=== PATIENT | female | born 1955 | race Caucasian/White ===

== ENCOUNTER → 2017-07-26 | Outpatient (CLI) | payer OTHER ==
--- NOTE | 2017-07-26 13:12 | RAD ---
DATE: 07/26/2017 EXAM: DIGITAL SCREEN BILAT W/CAD HISTORY: Routine screening COMPARISON: 07/24/2016 This study was interpreted with the benefit of Computerized Aided Detection (CAD). The breast parenchyma shows scattered fibroglandular densities. Breast parenchyma level B. FINDINGS: No new or enlarging breast densities are seen. A marker from a previous breast biopsy is present posteromedially in the left breast. No suspicious microcalcifications are evident. IMPRESSION: Stable mammograms without evidence of malignancy. BI-RADS CATEGORY: 2 BENIGN FINDING(S) RECOMMENDED FOLLOW-UP: 12M 12 MONTH FOLLOW-UP PQRS compliance statement: Patient information was entered into a reminder system with a target due date for the next mammogram. Mammography is a sensitive method for finding small breast cancers, but it does not detect them all and is not a substitute for careful clinical examination. A negative mammogram does not negate a clinically suspicious finding and should not result in delay in biopsying a clinically suspicious abnormality. "Our facility is accredited by the [employer] Mammography Program."
== END | disposition home or self-care (01) ==
LOC: MAMMO 09:53
PROVIDERS: ATTEND Physician Assistant Medical
DX: Z12.31 Encounter for screening mammogram for malignant neoplasm of breast (principal)
CPT/HCPCS: 77067

== ENCOUNTER 2017-09-04 13:30 | Emergency (ER) | payer OTHER ==
[~2017-09-04] VITALS: Ht 152.4 cm; Wt 91.6 kg
--- NOTE | 2017-09-04 14:10 | RAD ---
CT CODE STROKE HEAD WO History: Severe headache, right arm numbness, code stroke Comparison: None. Technique: Noncontrast CT imaging was performed of the head. Exposure: One or more of the following individualized dose reduction techniques were utilized for this examination: 1. Automated exposure control 2. Adjustment of the mA and/or kV according to patient size 3. Use of iterative reconstruction technique. Findings: There has been left parietal temporal craniotomy. No acute extra-axial or parenchymal hemorrhage is identified. There is no significant intra-axial mass effect, midline shift, or extra-axial fluid collection. The krueger-white differentiation of the major vascular territories is preserved. The ventricles, sulci, and cisterns are within normal limits in size and configuration. The mastoid air cells and the visualized paranasal sinuses are aerated. No acute calvarial abnormality is identified. Impression: 1. No acute intracranial abnormality is identified. If there is concern for evolving or acute ischemia, followup CT or MRI could be beneficial. FOR INTERNAL CODING PURPOSES Critical result: Findings discussed with Mariann RAMEY in the Emergency Department at 09/04/2017 2:03 PM. RESULT CODE: (C) Electronically signed by: Johnny Wolff MD (09/04/2017 2:07 PM) [id number]
[2017-09-04] MEDS ORDERED: KETOROLAC 30 MG/ML VIAL. IV ONE (14:15)
[2017-09-04] MEDS ORDERED: METOPROLOL TARTRATE 5 MG/5 ML VIAL. IV ONE (14:30)
[2017-09-04 14:37] VITALS: BP 157/85
--- NOTE | 2017-09-04 15:08 | PHYS DOC ---
Past History Past Medical History: Fibromyalgia, TIA Past Surgical History: , Lumbar Laminectomy Alcohol Use: None Drug Use: None Adult General Chief Complaint Chief Complaint: SEIZURE HPI HPI Patient is a 62 year old F who presents after being seen in the clinic for pacemaker check. During her visit, after her pacemaker was found to be normal, she did have a tonic-clonic seizure. She does have a history of seizures and has had frequent seizures over the past several weeks. She did recently increase her trazodone from 50 mg to 150. She also follows with Dr. Robles and neurology. Currently she describes a mild headache with no other abnormal symptoms. She has no other associated symptoms at this time. She has no other exacerbating or alleviating factors. Review of Systems Review of Systems Constitutional: Denies fever or chills [] Eyes: Denies change in visual acuity, redness, or eye pain [] HENT: Denies nasal congestion or sore throat [] Respiratory: Denies cough or shortness of breath [] Cardiovascular: No additional information not addressed in HPI [] GI: Denies abdominal pain, nausea, vomiting, bloody stools or diarrhea [] : Denies dysuria or hematuria [] Musculoskeletal: Denies back pain or joint pain [] Integument: Denies rash or skin lesions [] Neurologic: Denies focal weakness or sensory changes [] Endocrine: Denies polyuria or polydipsia [] All other systems were reviewed and found to be within normal limits, except as documented in this note. Family History Family History No Pertinent family medical history was reported Current Medications Current Medications Current Medications Medications (Trade) Dose Ordered Sig/[facility] Start Time Stop Time Status Last Admin Dose Admin Ketorolac Tromethamine (Toradol) 30 mg 1X ONCE 09/04/17 14:15 09/04/17 14:21 DC 09/04/17 14:17 30 MG Metoprolol Tartrate (Lopressor Vial) 5 mg 1X ONCE 09/04/17 14:30 09/04/17 14:31 DC Allergies Allergies Allergies Coded Allergies Type Severity Reaction Last Updated Verified erythromycin base Allergy Intermediate 09/04/17 Yes Physical Exam Physical Exam Constitutional: Well developed, well nourished, no acute distress, non-toxic appearance. [] HENT: Normocephalic, atraumatic, Eyes: EOMI, conjunctiva normal, no discharge. [] Neck: Normal range of motion, no tenderness, supple, no stridor. [] Cardiovascular:Heart rate regular rhythm, paced Lungs & Thorax: Bilateral breath sounds clear to auscultation [] Abdomen: Bowel sounds normal, soft, no tenderness, no masses, no pulsatile masses. [] Skin: Warm, dry, no erythema, no rash. [] Back: No tenderness, no CVA tenderness. [] Extremities: No tenderness, no cyanosis, no clubbing, ROM intact, no edema. [] Neurologic: Alert and oriented X 3, normal motor function, normal sensory function, no focal deficits noted. [] Psychologic: Affect normal, judgement normal, mood normal. [] Current Patient Data Vital Signs Vital Signs Date Time Temp Pulse Resp B/P (MAP) Pulse Ox O2 Delivery O2 Flow Rate FiO2 09/04/17 14:37 89 18 157/85 (109) 98 Room Air 09/04/17 13:51 98.0 EKG EKG [] Radiology/Procedures Radiology/Procedures CT head w/o contrast Impressions: No acute disease Course & Med Decision Making Course & Med Decision Making Pertinent Labs and Imaging studies reviewed. (See chart for details) [] Dragon Disclaimer Dragon Disclaimer This electronic medical record was generated, in whole or in part, using a voice recognition dictation system. Departure Departure: Impression: Primary Impression: Seizure Disposition: 01 HOME, SELF-CARE Condition: STABLE Referrals: MITCH BARRERA (PCP) Patient Instructions: Seizure Disorder, Child, Generalized Tonic-Clonic Additional Instructions: Gillian was seen in the emergency department for seizure. No emergency medical condition was found on history or physical exam. Dr. Robles, her neurologist, was contacted by phone. He advised that she increase her Trileptal to 600 mg in the morning and 300 mg in the evening. He also recommended that she increase her Vimpat to 150 mg twice daily. She was advised follow-up with Dr. Robles in the next week. MANDEEP ROSADO MD Sep 04, 2017 15:08
== END 2017-09-04 15:20 | disposition home or self-care (01) ==
LOC: ER 13:30
DX: R56.9 Unspecified convulsions (principal); R51 Headache; M79.7 Fibromyalgia; Z86.73 Personal history of transient ischemic attack (TIA), and cerebral infarction without residual deficits; Z95.0 Presence of cardiac pacemaker; Z88.1 Allergy status to other antibiotic agents
CPT/HCPCS: 70450; 96374; 99284; J1885

== ENCOUNTER → 2017-09-20 | Outpatient (CLI) | payer OTHER ==
[2017-09-04 14:37] VITALS: BP 157/85
[~2017-09-20] MED LIST: IOHEXOL 300 MG/ML 75 ML VIAL. IV ONE
--- NOTE | 2017-09-20 17:47 | RAD ---
CTA head History: CVA, syncope, seizure, memory change Technique: After bolus of intravenous contrast, volumetric CT data acquisition was acquired of the head. Multiplanar reconstruction images to include MIP and 3-D reconstruction images are submitted. Exposure: One or more of the following individualized dose reduction techniques were utilized for this examination: 1. Automated exposure control 2. Adjustment of the mA and/or kV according to patient size 3. Use of iterative reconstruction technique. Contrast: 75 cc Isovue-370 Comparison: Noncontrast head September 04, 2017 Any determination of stenosis is based on NASCET criteria. Findings: There is some motion. Both vertebral arteries constitute the basilar artery. There is visualization segments of the bilateral PICAs. AICAs are poorly visualized on this exam. Right superior cerebellar artery is poorly visualized. There is patent right posterior communicating artery, aplastic right P1 segment. There is no significant left posterior communicating artery. There is diffuse significant narrowing of the visualized left cervical internal carotid artery as well as of the left petrous internal carotid artery as well as cavernous segment with apparent occlusion at level of the anterior cavernous left internal carotid artery. There is also segmental occlusion of the more distal left petrous internal carotid artery. There is probable small patent anterior communicating artery. There is some reconstitution of segments of the small caliber left middle cerebral artery. There is also some variable reconstitution of small caliber left anterior cerebral artery. There again has been left parietal temporal craniotomy. There is moderate narrowing of the proximal cervical right internal carotid artery by calcified plaque. Impression: 1. There is diffuse narrowing of the left cervical internal carotid artery as well as left petrous and cavernous internal carotid arteries with occlusion beyond the anterior left cavernous internal carotid artery, also segmental occlusion at level of the distal left petrous internal carotid artery. There is some reconstitution of smaller caliber left middle cerebral artery branches, segmental reconstitution of smaller caliber left anterior cerebral artery. 2. There is -type right posterior cerebral artery. FOR INTERNAL CODING PURPOSES Critical result: Findings discussed with MITCH BARRERA at 09/20/2017 5:43 PM. RESULT CODE: (C) Electronically signed by: Johnny Wolff MD (09/20/2017 5:44 PM) [email or web address]
== END | disposition home or self-care (01) ==
LOC: CT 11:02
PROVIDERS: ATTEND Physician Assistant Medical
DX: I65.22 Occlusion and stenosis of left carotid artery (principal); I10 Essential (primary) hypertension; R56.9 Unspecified convulsions; R55 Syncope and collapse; R41.3 Other amnesia
CPT/HCPCS: 70496; Q9967

== ENCOUNTER 2017-11-26 13:30 | Emergency (ER) | payer OTHER ==
[2017-11-26] MEDS ORDERED: ONDANSETRON PF 4 MG/2 ML VIAL. IV ONE (14:00)
--- NOTE | 2017-11-26 14:02 | ED.ADGEN ---
Past History Past Medical History: Fibromyalgia, TIA Past Surgical History: , Lumbar Laminectomy Alcohol Use: None Drug Use: None Adult General Chief Complaint Chief Complaint Shaking episode HPI HPI Patient is a 62-year-old female with history of carotid stenosis, prior brain surgery, pseudoseizures and seizure disorder who presents with coarse tremors since 9:00 this morning. Patient is awake and aware of symptoms. She arrives by private vehicle by her son. Her son states patient typically has 2-3 self- limited shaking episodes lasting less than 10 minutes each week. However, this morning's medication as 1 on for hours. Patient has been compliant with her medications. She has not had any focal neurologic deficits. Recent illnesses or injuries. Patient has under increased stress and anxiety and is awaiting referral to [facility] and of stenosis. No other acute symptoms or complaints.[] Review of Systems Review of Systems ROS as per HPI All other systems were reviewed and found to be within normal limits, except as documented in this note. Current Medications Current Medications Current Medications Medications (Trade) Dose Ordered Sig/[facility] Start Time Stop Time Status Last Admin Dose Admin Fentanyl Citrate (Fentanyl 2ml Vial) 50 mcg 1X ONCE 11/26/17 14:00 11/26/17 14:01 DC 11/26/17 14:26 50 MCG Lorazepam (Ativan) 1 mg 1X ONCE 11/26/17 14:30 11/26/17 14:31 DC 11/26/17 14:28 1 MG Ondansetron HCl (Zofran) 4 mg 1X ONCE 11/26/17 14:00 11/26/17 14:01 DC 11/26/17 14:24 4 MG Allergies Allergies Allergies Coded Allergies Type Severity Reaction Last Updated Verified erythromycin base Allergy Intermediate 11/26/17 Yes Physical Exam Physical Exam Constitutional: Well developed, well nourished, his, eyes half open, coarse tremors extremities.[] HENT: Normocephalic, atraumatic, bilateral external ears normal, oropharynx moist, no oral exudates, nose normal. [] Eyes: PERRLA, EOMI, conjunctiva normal, no discharge. [] Neck: Normal range of motion. [] Cardiovascular:Heart rate regular rhythm, no murmur [] Lungs & Thorax: Bilateral breath sounds clear to auscultation [] Abdomen: Bowel sounds normal, soft, no tenderness, no masses, no pulsatile masses. [] Neurologic: Alert and oriented person, CN 2-12 grossly intact, normal motor function, normal sensory function, no focal deficits noted. [] Psychologic: Affect normal, judgement normal, mood normal. [] Current Patient Data Vital Signs Vital Signs Date Time Temp Pulse Resp B/P (MAP) Pulse Ox O2 Delivery O2 Flow Rate FiO2 11/26/17 15:11 63 12 125/53 (77) 98 Nasal Cannula 2.0 11/26/17 13:30 98.2 Lab Results Laboratory Tests Test 11/26/17 14:15 White Blood Count 8.4 x10^3/uL (4.0-11.0) Red Blood Count 4.14 x10^6/uL (3.50-5.40) Hemoglobin 13.8 g/dL (12.0-15.5) Hematocrit 39.0 % (36.0-47.0) Mean Corpuscular Volume 94 fL (79-100) Mean Corpuscular Hemoglobin 33 pg (25-35) Mean Corpuscular Hemoglobin Concent 35 g/dL (31-37) Red Cell Distribution Width 14.5 % (11.5-14.5) Platelet Count 268 x10^3/uL (140-400) Neutrophils (%) (Auto) 69 % (31-73) Lymphocytes (%) (Auto) 20 % (24-48) L Monocytes (%) (Auto) 8 % (0-9) Eosinophils (%) (Auto) 2 % (0-3) Basophils (%) (Auto) 2 % (0-3) Neutrophils # (Auto) 5.8 x10^3uL (1.8-7.7) Lymphocytes # (Auto) 1.7 x10^3/uL (1.0-4.8) Monocytes # (Auto) 0.6 x10^3/uL (0.0-1.1) Eosinophils # (Auto) 0.2 x10^3/uL (0.0-0.7) Basophils # (Auto) 0.1 x10^3/uL (0.0-0.2) Prothrombin Time 9.6 SEC (9.4-11.4) Prothrombin Time INR 0.9 (0.9-1.1) PTT 25 SEC (23-33) Sodium Level 141 mmol/L (136-145) Potassium Level 4.3 mmol/L (3.5-5.1) Chloride Level 104 mmol/L (98-107) Carbon Dioxide Level 27 mmol/L (21-32) Anion Gap 10 (6-14) Blood Urea Nitrogen 12 mg/dL (7-20) Creatinine 0.6 mg/dL (0.6-1.0) Estimated GFR (Cockcroft-Gault) 101.0 BUN/Creatinine Ratio 20 (6-20) Glucose Level 87 mg/dL (70-99) Calcium Level 8.4 mg/dL (8.5-10.1) L Total Bilirubin 0.5 mg/dL (0.2-1.0) Aspartate Amino Transferase (AST) 21 U/L (15-37) Alanine Aminotransferase (ALT) 21 U/L (14-59) Alkaline Phosphatase 127 U/L (46-116) H Total Protein 6.7 g/dL (6.4-8.2) Albumin 3.7 g/dL (3.4-5.0) Albumin/Globulin Ratio 1.2 (1.0-1.7) EKG EKG [] Radiology/Procedures Radiology/Procedures [CT head: No acute findings per radiology report] Course & Med Decision Making Course & Med Decision Making Pertinent Labs and Imaging studies reviewed. (See chart for details) [Symptoms fully resolved with Ativan, etiology unclear but most consistent with anxiety or panic attack versus pseudoseizure. CT, lab and imaging studies reviewed. Patient observed in the ED for 2 hours without recurrence of symptoms. Recommend further treatment and follow-up with PCP and neurology. ] Final Impression Final Impression [1. Coarse tremors] Colette Disclaimer Dragon Disclaimer This electronic medical record was generated, in whole or in part, using a voice recognition dictation system. BURT LANZA DO Nov 26, 2017 14:02
--- NOTE | 2017-11-26 14:21 | RAD ---
EXAM: Head CT without contrast. HISTORY: Tremors. TECHNIQUE: Computed tomographic images of the head were obtained without contrast. *One or more of the following individualized dose reduction techniques were utilized for this examination: 1. Automated exposure control. 2. Adjustment of the mA and/or kV according to patient size. 3. Use of iterative reconstruction technique. COMPARISON: 09/20/2017. FINDINGS: There is no acute or subacute extra-axial or intraparenchymal hemorrhage. There is no mass effect or midline shift. There is no hydrocephalus. No abnormal enhancing lesion is seen. There are areas of decreased attenuation within the cerebral white matter, nonspecific and likely related to chronic small vessel disease. There are left craniotomy changes. There is partial opacification of the mastoid air cells. The orbits are unremarkable. IMPRESSION: 1. No acute intracranial finding. Note is made that MRI is more sensitive for acute infarction. 2. Subtle areas of hypodensity within the cerebral white matter, likely artifactual or due to chronic small vessel disease. Electronically signed by: Veronica Talamantes MD (11/26/2017 2:17 PM) [place] [id number]
[2017-11-26] MEDS ORDERED: LORazepam 2 MG/ML VIAL IV ONE (14:30)
[2017-11-26 14:33] LABS: BASO # 0.1 x10^3/uL (0.0-0.2); BASO % 2 % (0-3); EOS # 0.2 x10^3/uL (0.0-0.7); EOS % 2 % (0-3); HEMOGLOBIN 13.8 g/dL (12.0-15.5); LYMPH # 1.7 x10^3/uL (1.0-4.8); LYMPH % 20 % (24-48); MEAN CORPUSCULAR HEMOGLOBIN 33 pg (25-35); MEAN CORPUSCULAR HGB CONC 35 g/dL (31-37); MEAN CORPUSCULAR VOLUME 94 fL (79-100); MONO # 0.6 x10^3/uL (0.0-1.1); MONO % 8 % (0-9); NEUT # 5.8 x10^3uL (1.8-7.7); NEUT % 69 % (31-73); PLATELET COUNT 268 x10^3/uL (140-400); RED BLOOD COUNT 4.14 x10^6/uL (3.50-5.40); RED CELL DISTRIBUTION WIDTH 14.5 % (11.5-14.5); WHITE BLOOD COUNT 8.4 x10^3/uL (4.0-11.0)
--- NOTE | 2017-11-26 14:46 | EKG ---
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
[2017-11-26 14:49] LABS: ALBUMIN 3.7 g/dL (3.4-5.0); ALBUMIN/GLOBULIN RATIO 1.2 (1.0-1.7); CALCIUM 8.4 mg/dL (8.5-10.1); CREATININE 0.6 mg/dL (0.6-1.0); POTASSIUM 4.3 mmol/L (3.5-5.1); TOTAL BILIRUBIN 0.5 mg/dL (0.2-1.0); TOTAL PROTEIN 6.7 g/dL (6.4-8.2)
[2017-11-26] MEDS ORDERED: LACO50TA PO (16:14)
[2017-11-26] MEDS ORDERED: OXCA150T3 PO (16:15)
[2017-11-26 17:11] VITALS: BP 122/57
== END 2017-11-26 17:40 | disposition home or self-care (01) ==
LOC: ER 13:30
DX: G25.2 Other specified forms of tremor (principal); M79.7 Fibromyalgia; G40.909 Epilepsy, unspecified, not intractable, without status epilepticus; Z86.73 Personal history of transient ischemic attack (TIA), and cerebral infarction without residual deficits; Z88.1 Allergy status to other antibiotic agents
CPT/HCPCS: 36415; 70450; 80053; 85025; 85610; 85730; 93005; 96374; 96375; 99285; J2060; J2405; J3010

== ENCOUNTER → 2018-06-03 | Outpatient (CLI) | payer OTHER ==
[~2018-06-03] MED LIST changes: -IOHEXOL 300 MG/ML 75 ML VIAL. IV ONE; +LACO50TA PO; +OXCA150T3 PO
--- NOTE | 2018-06-03 13:11 | RAD ---
EXAM: CT Abdomen and Pelvis without IV contrast CLINICAL HISTORY: LLQ PAIN AT LEVEL OF THE ILIAC CREST FOR THREE WEEKS COMPARISON: none TECHNIQUE: Helical CT of the abdomen and pelvis without intravenous contrast. Axial, coronal and sagittal reformatted images were generated. PQRS compliance statement - One or more of the following individualized dose reduction techniques were utilized for this study: 1. Automated exposure control 2. Adjustment of the mA and/or kV according to patient size 3. Use of iterative reconstruction technique FINDINGS: Lack of intravenous contrast limits evaluation of solid organs, vasculature, and lymph nodes. Lower chest: Linear opacities in the lingula likely scarring/atelectasis. Pacer leads are seen within the heart which is otherwise unremarkable. Abdomen and Pelvis: No focal liver lesion. High density material within the gallbladder likely sludge. No gallbladder wall thickening or pericholecystic fluid. No biliary ductal dilatation. Calcified granuloma are seen within the spleen. Adrenal glands are unremarkable. Suspected annular pancreas, otherwise the pancreas is normal in appearance. Appendix is normal. Moderate colonic stool content. No evidence for bowel obstruction. No focal renal lesion. No hydronephrosis. No definite renal tract calculus. No abdominal or pelvic ascites. No lymphadenopathy. Mild thickening of the anterior bladder wall, may be seen with cystitis. Atherosclerotic vascular calcifications are seen. Bones: Multilevel degenerative changes of the spine are seen, most prominent at L4-5. No definite aggressive osseous lesion is seen. IMPRESSION: 1. No definite renal tract calculus is seen. No hydronephrosis or hydroureter. 2. Mild thickening of the anterior bladder wall, may be seen with cystitis. 3. Degenerative changes of the lumbar spine are most prominent at L4-5. Electronically signed by: Tai Reece MD (06/03/2018 1:07 PM) [facility]
== END | disposition home or self-care (01) ==
LOC: CT 10:48
PROVIDERS: ATTEND Physician Assistant Medical
DX: R10.32 Left lower quadrant pain (principal); I70.0 Atherosclerosis of aorta; M47.896 Other spondylosis, lumbar region
CPT/HCPCS: 74176

== ENCOUNTER → 2018-11-12 | Outpatient (CLI) | payer OTHER ==
[~2018-11-12] MED LIST changes: +ALBU2.5V8 INH; +ALPR0.5T PO; +ASPI81TA50 PO; +ATORVASTATIN CA80 MG PO; +BUDE10.22 IH; +CARV6.25 PO; +CHOL100013 PO; +CLOP75TA57 PO; +GABA-586 PO; +LACO150T PO; +LEVO50TA5 PO; +LOSA100T14 PO; +MONT10TA9 PO; +NABU500T PO; +NITR0.4T SL; +OMEP40CA5 PO; +OXCA300T3 PO; +SERT50TA PO; +SOLI5TAB2 PO; +TRAZ150T49 PO
--- NOTE | 2018-11-12 11:55 | CARD ---
MR#: [id number] Date of Study: 11/12/2018 Ordering Physician: KALIN ROD, Referring Physician: KALIN ROD, Tech: Sonia Díaz GULSHAN APPROVED REPORT EXAM: Two-dimensional and M-mode echocardiogram with Doppler and color Doppler. Other Information Quality : Fair INDICATION Mitral Valve Disease Mitral Regurgitation 2D DIMENSIONS RVDd2.8 (2.9-3.5cm)Left Atrium(2D)3.3 (1.6-4.0cm) IVSd1.1 (0.7-1.1cm)Aortic Root(2D)2.6 (2.0-3.7cm) LVDd3.8 (3.9-5.9cm)LVOT Diameter1.9 (1.8-2.4cm) PWd1.1 (0.7-1.1cm)LVDs1.8 (2.5-4.0cm) FS (%) 30.0 %SV53.9 ml LVEF(%)60.0 (>50%) Aortic Valve AoV Peak Jung.220.2cm/sAoV VTI40.7cm AO Peak GR.19.4mmHgLVOT Peak Jung.167.9cm/s LVOT VTI 34.82cmAO Mean GR.10mmHg MERA (VMAX)2.67xj1LLI (VTI)2.34cm2 Mitral Valve MV E Hjpltose57.0cm/sMV DECEL YFFA214fg MV A Ctbrmzfd612.3cm/sE/A Ratio0.8 Tricuspid Valve TR P. Brxdmeje882yi/sRAP BHKMBNNI7gcOi TR Peak Gr.07ryWrECRM52klDi Pulmonary Vein S1 Tjvkijas63.7cm/sD2 Qwvqgzep81.6cm/s LEFT VENTRICLE The left ventricle is normal size. There is normal left ventricular wall thickness. The left ventricu lar systolic function is normal. The Ejection Fraction is 60-65%. There is normal LV segmental wall m otion. Transmitral Doppler flow pattern is Grade I-abnormal relaxation pattern. RIGHT VENTRICLE The right ventricle is normal size. The right ventricular systolic function is normal. There is a pac emaker lead in the right ventricle. ATRIA The left atrium size is normal. The right atrium size is normal. A pacemaker is seen in the right atr ium consistent with history. The interatrial septum is intact with no evidence for an atrial septal d efect or patent foramen ovale as noted on 2-D or Doppler imaging. AORTIC VALVE The aortic valve is calcified but opens well. Doppler and Color Flow revealed no significant aortic r egurgitation. There is no significant aortic valvular stenosis. MITRAL VALVE The mitral valve is calcified but opens well. Mitral annular calcification is mild. There is no evide nce of mitral valve prolapse. There is no mitral valve stenosis. Doppler and Color-flow revealed trac e mitral regurgitation. TRICUSPID VALVE The tricuspid valve is normal in structure and function. Doppler and Color Flow revealed trace to mil d tricuspid regurgitation. There is mild pulmonary hypertension. The PA pressure was estimated at 31 mmHg. There is no tricuspid valve stenosis. PULMONIC VALVE The pulmonic valve is not well visualized. Doppler and Color Flow revealed no pulmonic valvular regur gitation. There is no pulmonic valvular stenosis. GREAT VESSELS The aortic root is normal in size. The ascending aorta is normal in size. The IVC is normal in size a nd collapses >50% with inspiration. PERICARDIAL EFFUSION There is no evidence of significant pericardial effusion. Critical Notification Critical Value: No <Conclusion> The left ventricular systolic function is normal. The Ejection Fraction is 60-65%. There is normal LV segmental wall motion. Transmitral Doppler flow pattern is Grade I-abnormal relaxation pattern. There is a pacemaker lead in the right atrium and right ventricle. Trace mitral regurgitation. Trace to mild tricuspid regurgitation. The PA pressure was estimated at 31 mmHg. There is no evidence of significant pericardial effusion. Signed by : Osmani Doe, Electronically Approved : 11/12/2018 11:54:22
== END | disposition home or self-care (01) ==
LOC: ECHO 10:43
PROVIDERS: ATTEND Internal Medicine Cardiovascular Disease
DX: I08.3 Combined rheumatic disorders of mitral, aortic and tricuspid valves (principal); I27.20 Pulmonary hypertension, unspecified
CPT/HCPCS: 93306

== ENCOUNTER 2019-01-29 15:46 | Emergency (ER) | payer MEDICAID, OTHER ==
[~2019-01-29] VITALS: Ht 154.9 cm; Wt 101.2 kg
[~2019-01-29 15:46] MED LIST changes: +MONT10TA80 PO; -MONT10TA9 PO
[2019-01-29 15:54] VITALS: BP 122/57
[2019-01-29] MEDS ORDERED: DIPHTH,PERTUSS(ACELL),TET TOX 0.5 ML DISP.SYRIN. VAX IM ONE (16:00)
[2019-01-29] MEDS ORDERED: IBUPROFEN 600 MG TABLET. PO ONE (16:00)
[2019-01-29] MEDS ORDERED: MELO7.5T29 PO (16:04)
[2019-01-29] MEDS ORDERED: HYDR-3165 PO (16:04)
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
== END 2019-01-29 16:09 | disposition home or self-care (01) ==
LOC: ER 15:46
DX: T23.142A Burn of first degree of multiple left fingers (nail), including thumb, initial encounter (principal); M79.7 Fibromyalgia; I10 Essential (primary) hypertension; F17.210 Nicotine dependence, cigarettes, uncomplicated; Z86.73 Personal history of transient ischemic attack (TIA), and cerebral infarction without residual deficits; Z88.1 Allergy status to other antibiotic agents; X15.2XXA Contact with hotplate, initial encounter; Y93.89 Activity, other specified; Y92.89 Other specified places as the place of occurrence of the external cause; Y99.8 Other external cause status
CPT/HCPCS: 90471; 90715; 99283

== ENCOUNTER 2019-05-11 10:00 | Emergency (ER) | payer MEDICAID ==
[~2019-05-11] VITALS: Ht 154.9 cm; Wt 88.8 kg
[~2019-05-11 10:00] MED LIST changes: +HYDR-3165 PO; +MELO7.5T29 PO; -NITR0.4T SL; +NITR0.4T24 SL; +OMEP40CA45 PO; -OMEP40CA5 PO
--- NOTE | 2019-05-11 10:34 | RAD ---
EXAM: CT Head without IV contrast CLINICAL HISTORY: Right-sided weakness, TIA, seizures, history of brain surgery COMPARISON: None. TECHNIQUE: Routine CT of the head without contrast. Soft tissues and bone windows were reviewed. PQRS compliance statement - One or more of the following individualized dose reduction techniques were utilized for this study: 1. Automated exposure control 2. Adjustment of the mA and/or kV according to patient size 3. Use of iterative reconstruction technique FINDINGS: Changes of left parietotemporal craniotomy are seen. Mild changes of hyperostosis frontalis interna. There is no evidence of hemorrhage, mass or extra-axial fluid collection. Zuniga-white differentiation is maintained with no evidence of edema. Subcortical and periventricular foci of white matter hypoattenuation, nonspecific but may represent changes of chronic small vessel disease. There is no mass effect or shift of the intracranial structures. The ventricles, basilar cisterns and cortical sulci are normal in size and configuration for the patients stated age. The cerebellum and brainstem are unremarkable. There is normal aeration of the visualized paranasal sinuses and mastoid air cells. The visualized portions of the orbits are normal. IMPRESSION: 1. No evidence for acute intracranial process. 2. Subcortical and periventricular foci of white matter hypoattenuation, nonspecific but may represent changes of chronic small vessel disease. Electronically signed by: Tai Reece MD (05/11/2019 10:31 AM) [id number]
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
[2019-05-11 11:09] LABS: BASO % 1 % (0-3); EOS # 0.3 x10^3/uL (0.0-0.7); EOS % 4 % (0-3); HEMATOCRIT 38.9 % (36.0-47.0); HEMOGLOBIN 13.2 g/dL (12.0-15.5); LYMPH # 1.6 x10^3/uL (1.0-4.8); LYMPH % 19 % (24-48); MEAN CORPUSCULAR HEMOGLOBIN 33 pg (25-35); MEAN CORPUSCULAR HGB CONC 34 g/dL (31-37); MEAN CORPUSCULAR VOLUME 97 fL (79-100); MONO # 0.6 x10^3/uL (0.0-1.1); MONO % 7 % (0-9); NEUT # 5.8 x10^3uL (1.8-7.7); NEUT % 70 % (31-73); PLATELET COUNT 245 x10^3/uL (140-400); RED BLOOD COUNT 4.01 x10^6/uL (3.50-5.40); RED CELL DISTRIBUTION WIDTH 15.2 % (11.5-14.5); WHITE BLOOD COUNT 8.3 x10^3/uL (4.0-11.0)
[2019-05-11 11:36] LABS: ALBUMIN 3.7 g/dL (3.4-5.0); CALCIUM 8.6 mg/dL (8.5-10.1); CREATININE 0.7 mg/dL (0.6-1.0); POTASSIUM 3.8 mmol/L (3.5-5.1); TOTAL BILIRUBIN 0.6 mg/dL (0.2-1.0); TOTAL PROTEIN 7.3 g/dL (6.4-8.2)
[2019-05-11 12:34] VITALS: BP 166/76
== END 2019-05-11 12:37 | disposition home or self-care (01) ==
LOC: ER 10:00
DX: R56.9 Unspecified convulsions (principal); M79.7 Fibromyalgia; I10 Essential (primary) hypertension; F17.210 Nicotine dependence, cigarettes, uncomplicated; Z86.73 Personal history of transient ischemic attack (TIA), and cerebral infarction without residual deficits; Z88.1 Allergy status to other antibiotic agents
CPT/HCPCS: 36415; 70450; 80053; 85025; 99285-25

== ENCOUNTER 2019-09-03 23:33 | Emergency (ER) | payer MEDICAID ==
[~2019-09-03] VITALS: Ht 154.9 cm; Wt 88.8 kg
--- NOTE | 2019-09-03 23:44 | PHYS DOC ---
Past History Past Medical History: Anxiety, Arthritis, CHF, Dementia, Fibromyalgia, Hypertension, TIA, Other Additional Past Medical Histor: seizure Past Surgical History: , Lumbar Laminectomy, Other Additional Past Surgical Histo: pacemaker, " they removed an artery from one side of the brain, to the othe Smoking: Cigarettes Alcohol Use: None Drug Use: None Adult General Chief Complaint Chief Complaint: " My wrist BP was 190 at home so took my meds.. I guess it okay now. HPI HPI Patient is a 64 year old female who presents with above hx and complaints of hypertensin with chf symptoms. Patient does have a history of hypertension and episodes of pulmonary edema and CHF. Patient also has history of fibromyalgia arthritis and anxiety. Currently on arrival patient's blood pressure was normal. Follows with Natali. Review of Systems Review of Systems Constitutional: Denies fever or chills [] Eyes: Denies change in visual acuity, redness, or eye pain [] HENT: Denies nasal congestion or sore throat [] Respiratory: Denies cough or shortness of breath [] Cardiovascular: No additional information not addressed in HPI [] GI: Denies abdominal pain, nausea, vomiting, bloody stools or diarrhea [] : Denies dysuria or hematuria [] Musculoskeletal: Complaints of chronic back and joint pain. Integument: Denies rash or skin lesions [] Neurologic: Denies headache, focal weakness or sensory changes [] Endocrine: Denies polyuria or polydipsia [] All other systems were reviewed and found to be within normal limits, except as documented in this note. Family History Family History Noncontributory presentation Current Medications Current Medications See nursing for home meds Allergies Allergies Allergies Coded Allergies Type Severity Reaction Last Updated Verified erythromycin base Allergy Intermediate 11/26/17 Yes Physical Exam Physical Exam Constitutional: , no acute distress, non-toxic appearance. [] HENT: Normocephalic, atraumatic, bilateral external ears normal, oropharynx moist, no oral exudates, nose normal. [] Eyes: PERRLA, EOMI, conjunctiva normal, no discharge. Glasses Neck: Normal range of motion, no tenderness, supple, no stridor. [] Cardiovascular:Heart rate regular rhythm, no murmur [] Neck circumference more than 17 inches Lungs & Thorax: Bilateral breath sounds equal apexes few basilar crackles, scattered wheezes on auscultation Abdomen: Bowel sounds normal, soft, no tenderness, no masses, no pulsatile masses. Morbidly obese. Old surgery scars Skin: Warm, dry, no erythema, no rash. [] Back: No tenderness, no CVA tenderness. Old surgery scars. Extremities: No tenderness, no cyanosis, no clubbing, ROM intact, ankle edema. [] Neurologic: Alert and oriented X 3, normal motor function, normal sensory function, no focal deficits noted. [] Psychologic: Affect anxious, appears to have some memory problems,, mood normal. [] EKG EKG [] Radiology/Procedures Radiology/Procedures [] Course & Med Decision Making Course & Med Decision Making Pertinent Labs and Imaging studies reviewed. (See chart for details) Patient take hypertensive meds as directed. Follow-up primary care. Do serial checks 4 times a day of blood pressure. Keep track of this record and show it to her primary care. Return if any concerns. Impression: 1. Hx HTN- Normal BP 's during ED visit. 2. Anxiety 3. Morbid obesity [] Dragon Disclaimer Dragon Disclaimer This electronic medical record was generated, in whole or in part, using a voice recognition dictation system. Departure Departure: Disposition: HOME/RESIDENCE PRIOR TO ADM Condition: STABLE Referrals: MITCH BARRERA (PCP) Colette Disclaimer This chart was dictated in whole or in part using Voice Recognition software in a busy, high-work load, and often noisy Emergency Department environment. It may contain unintended and wholly unrecognized errors or omissions. Dragon Disclaimer This chart was dictated in whole or in part using Voice Recognition software in a busy, high-work load, and often noisy Emergency Department environment. It may contain unintended and wholly unrecognized errors or omissions. MADALYN YU MD Sep 03, 2019 23:44
[2019-09-04 01:25] VITALS: BP 122/51
== END 2019-09-04 01:40 | disposition home or self-care (01) ==
LOC: ER 23:33
DX: I11.0 Hypertensive heart disease with heart failure (principal); F41.9 Anxiety disorder, unspecified; I50.9 Heart failure, unspecified; M79.7 Fibromyalgia; M19.90 Unspecified osteoarthritis, unspecified site; G89.29 Other chronic pain; E66.01 Morbid (severe) obesity due to excess calories; F03.90 Unspecified dementia, unspecified severity, without behavioral disturbance, psychotic disturbance, mood disturbance, and anxiety; F17.210 Nicotine dependence, cigarettes, uncomplicated; Z68.37 Body mass index [BMI] 37.0-37.9, adult; Z95.0 Presence of cardiac pacemaker; Z86.73 Personal history of transient ischemic attack (TIA), and cerebral infarction without residual deficits; Z88.1 Allergy status to other antibiotic agents
CPT/HCPCS: 99281